=== PATIENT | male | born 1965 | race Caucasian/White ===

== ENCOUNTER 2016-07-10 20:29 | Inpatient (IN) | payer BC ==
[~2016-07-10] VITALS: Ht 182.9 cm; Wt 123.8 kg
[2016-07-10 22:05] LABS: CARBON DIOXIDE (BICARBONATE) 27.3 MEQ/L (20-31)
[2016-07-10 22:06] LABS: HEMATOCRIT 38.7 % (38.0-50.0); MCH 31.1 PG (29.0-34.0); MCHC 34.1 G/DL (30.0-36.0); MCV 91.3 FL (86-99); MEAN PLAT.VOLUME 12.1 uM^3 (9.0-12.4); PLATELET COUNT 66 K/uL (156-360); RBC DIS.WIDTH-CV 12.9 % (11.8-14.6); RED BLOOD COUNT 4.24 M/uL (4.00-5.50); WHITE BLOOD COUNT 6.8 K/uL (4.1-10.2)
[2016-07-10 22:17] LABS: CHLORIDE 94 mEq/L (99-109); POTASSIUM 5.5 mEq/L (3.7-5.4); SODIUM 129 mEq/L (136-147)
[2016-07-10 22:20] LABS: ANION GAP 14 MEQ/L (2-14)
[2016-07-10 22:22] LABS: GFR ESTIMATE (CALCULATED) 38 mL/min/
[2016-07-10 22:23] LABS: UREA NITROGEN (BUN) 40 mg/dL (9-23)
[2016-07-10 22:39] LABS: GLUCOSE 594 mg/dL (70-99)
[2016-07-10 22:55] LABS: SAMPLE HEMOLYSIS CHECK 0; SAMPLE ICTERIC CHECK 0; SAMPLE LIPEMIA CHECK 0
[2016-07-11] MEDS ORDERED: RAMIPRIL5 MG PO (00:19)
[2016-07-11] MEDS ORDERED: METFORMIN HCL500 MG PO (00:20)
[2016-07-11] MEDS ORDERED: CHOLESTEROL MED PO (00:20)
[2016-07-11 03:07] VITALS: BP 183/93
[2016-07-11 03:53] VITALS: BP 185/95
[2016-07-11 06:16] LABS: POINT-OF-CARE METER ID UU14149397
[2016-07-11 08:15] VITALS: BP 166/95
[2016-07-11 09:20] LABS: Estimated Average Glucose 298 mg/dL (70-123)
[2016-07-11 09:30] LABS: ANION GAP 9 MEQ/L (2-14); CHLORIDE 98 MEQ/L (99-109); SAMPLE HEMOLYSIS CHECK 0; SAMPLE ICTERIC CHECK 0; SAMPLE LIPEMIA CHECK 0; SODIUM 131 MEQ/L (136-147)
[2016-07-11 09:35] LABS: GFR ESTIMATE (CALCULATED) 53 mL/min/; GLUCOSE 337 mg/dL (70-99); HDL CHOLESTEROL 21 MG/DL (Desirable>=40); LDL CHOLESTEROL 83 mg/dL (Desirable<100); NON-HDL CHOLESTEROL 106 mg/dL (Desirable<160); TOTAL CHOLESTEROL 127 mg/dL (Desirable<200); TRIGLYCERIDES 116 MG/DL (Normal: <150); UREA NITROGEN (BUN) 35 mg/dL (9-23)
[2016-07-11 09:49] LABS: BASOPHIL COUNT 0.1 K/uL (0-0.1); EOSINOPHIL (%) 2.3 % (0-5); EOSINOPHIL COUNT 0.1 K/uL (0-0.3); HEMATOCRIT 31.2 % (38.0-50.0); IMMATURE GRANULOCYTE (%) 0.4 % (0.0-0.7); INSTRUMENT ABS NEUTROPHIL CT 4.4 K/uL; LYMPHOCYTE COUNT 0.5 K/uL (1.0-2.8); MCH 32.6 PG (29.0-34.0); MCHC 35.3 G/DL (30.0-36.0); MCV 92.6 FL (86-99); MEAN PLAT.VOLUME 11.7 uM^3 (9.0-12.4); MONOCYTE (%) 9.4 % (3-12); MONOCYTE COUNT 0.5 K/uL (0-0.8); NEUTROPHIL (%) 77.6 % (45-76); NEUTROPHIL COUNT 4.4 K/uL (1.8-6.4); PLATELET COUNT 51 K/uL (156-360); RBC DIS.WIDTH-CV 13.4 % (11.8-14.6); RBC DIS.WIDTH-SD 45.7 % (39-53); WHITE BLOOD COUNT 5.7 K/uL (4.1-10.2)
[2016-07-11 09:50] LABS: RED BLOOD COUNT 3.37 M/uL (4.00-5.50)
[2016-07-11 11:53] LABS: POINT-OF-CARE METER ID UU14149397
[2016-07-11 14:48] LABS: POINT-OF-CARE METER ID UU14100415
[2016-07-11 14:49] LABS: POINT-OF-CARE METER ID UU14149397
[2016-07-11 14:50] LABS: POINT-OF-CARE METER ID UU14188577
[2016-07-11 14:54] LABS: POINT-OF-CARE METER ID UU13113800
[2016-07-11 14:54] LABS: POINT-OF-CARE METER ID UU13113800
[2016-07-11 14:54] LABS: POINT-OF-CARE METER ID UU13113800
[2016-07-11 15:57] VITALS: BP 170/74
[2016-07-11 19:11] LABS: POINT-OF-CARE METER ID UU14149397
[2016-07-11 19:49] VITALS: BP 174/94
[2016-07-11 22:10] LABS: METH RESISTANT S AUREUS PCR NEGATIVE (NEGATIVE)
[2016-07-11 22:12] LABS: PROBE CHECK PASS; SPECIMEN PROCESSING CONTROL PASS
[2016-07-11 23:45] VITALS: BP 134/66
[2016-07-12 01:41] LABS: POINT-OF-CARE METER ID UU14149397
[2016-07-12 03:42] VITALS: BP 166/89
[2016-07-12 06:20] LABS: BASOPHIL COUNT 0.1 K/uL (0-0.1); EOSINOPHIL (%) 6.8 % (0-5); EOSINOPHIL COUNT 0.4 K/uL (0-0.3); IMMATURE GRANULOCYTE (%) 0.4 % (0.0-0.7); INSTRUMENT ABS NEUTROPHIL CT 3.6 K/uL; MCHC 33.8 G/DL (30.0-36.0); MCV 94.7 FL (86-99); MONOCYTE COUNT 0.5 K/uL (0-0.8); NEUTROPHIL (%) 65.2 % (45-76); NEUTROPHIL COUNT 3.6 K/uL (1.8-6.4); PLATELET COUNT 63 K/uL (156-360); RBC DIS.WIDTH-CV 13.4 % (11.8-14.6); RBC DIS.WIDTH-SD 46.4 % (39-53); RED BLOOD COUNT 3.59 M/uL (4.00-5.50); WHITE BLOOD COUNT 5.6 K/uL (4.1-10.2)
[2016-07-12 06:49] LABS: ALKALINE PHOSPHATASE 146 IU/L (3-129); ANION GAP 7 MEQ/L (2-14); CHLORIDE 99 MEQ/L (99-109); GFR ESTIMATE (CALCULATED) 46 mL/min/; GLUCOSE 175 mg/dL (70-99); POTASSIUM 3.9 MEQ/L (3.7-5.4); SAMPLE HEMOLYSIS CHECK 0; SAMPLE ICTERIC CHECK 0; SAMPLE LIPEMIA CHECK 0; SODIUM 132 MEQ/L (136-147); TOTAL BILIRUBIN 2.1 MG/DL (0.0-1.0); UREA NITROGEN (BUN) 33 mg/dL (9-23)
[2016-07-12 08:02] VITALS: BP 193/95
[2016-07-12 12:23] VITALS: BP 146/96
[2016-07-12 12:27] LABS: POINT-OF-CARE METER ID UU14149397
[2016-07-12 14:14] LABS: POINT-OF-CARE METER ID UU14149397
[2016-07-12 16:32] VITALS: BP 129/66
[2016-07-12 16:38] VITALS: BP 150/92
[2016-07-12 20:00] VITALS: BP 179/90
[2016-07-13 00:23] VITALS: BP 170/85
[2016-07-13 03:54] VITALS: BP 143/91
[2016-07-13 06:22] LABS: HEMATOCRIT 32.7 % (38.0-50.0); MCHC 33.9 G/DL (30.0-36.0); MCV 94.2 FL (86-99); MEAN PLAT.VOLUME 11.6 uM^3 (9.0-12.4); PLATELET COUNT 51 K/uL (156-360); RBC DIS.WIDTH-CV 13.2 % (11.8-14.6); RBC DIS.WIDTH-SD 45.6 % (39-53); RED BLOOD COUNT 3.47 M/uL (4.00-5.50); WHITE BLOOD COUNT 4.6 K/uL (4.1-10.2)
[2016-07-13 07:30] VITALS: BP 140/98
[2016-07-13] MEDS ORDERED: PRAVASTATIN SOD80 MG PO (08:36)
[2016-07-13] MEDS ORDERED: LEVEMIR100 UNIT/2 SC (08:36)
[2016-07-13] MEDS ORDERED: GABAPENTIN100 MG PO (08:36)
[2016-07-13] MEDS ORDERED: AMLODIPINE BESYL5 MG PO (08:36)
[2016-07-13] MEDS ORDERED: VANCOMYCIN HCL1 GM IV (08:36)
[2016-07-13 11:25] VITALS: BP 162/98
[2016-07-13] MEDS ORDERED: BACTRIM,SEPT1 TABLET PO (11:28)
[2016-07-13 14:07] LABS: ANION GAP 8 MEQ/L (2-14); CHLORIDE 99 MEQ/L (99-109); GFR ESTIMATE (CALCULATED) 32 mL/min/; GLUCOSE 228 mg/dL (70-99); SAMPLE HEMOLYSIS CHECK 0; SAMPLE ICTERIC CHECK 0; SAMPLE LIPEMIA CHECK 0; SODIUM 130 MEQ/L (136-147); UREA NITROGEN (BUN) 38 mg/dL (9-23); VANCOMYCIN, TROUGH 24.8 MCG/ML (10-20)
== END 2016-07-13 14:38 | disposition home health service (06) | DRG 603 ==
LOC: EME 20:29 → 3EAST 07-11 01:27 → EDOF 07-11 01:27 → 3EAST 07-11 02:39
PROVIDERS: Internal Medicine; Internal Medicine Infectious Disease; Pediatrics; Physician Assistant
DX: L03.116 Cellulitis of left lower limb (principal); N17.9 Acute kidney failure, unspecified; I16.0 Hypertensive urgency; E87.1 Hypo-osmolality and hyponatremia; L02.416 Cutaneous abscess of left lower limb; E87.2 Acidosis; F10.20 Alcohol dependence, uncomplicated; B95.62 Methicillin resistant Staphylococcus aureus infection as the cause of diseases classified elsewhere; D69.6 Thrombocytopenia, unspecified; E87.5 Hyperkalemia; E11.42 Type 2 diabetes mellitus with diabetic polyneuropathy; E11.65 Type 2 diabetes mellitus with hyperglycemia; L30.9 Dermatitis, unspecified; E78.5 Hyperlipidemia, unspecified; R25.1 Tremor, unspecified; L71.9 Rosacea, unspecified; E66.9 Obesity, unspecified; Z68.37 Body mass index [BMI] 37.0-37.9, adult; Z91.14 Patient's other noncompliance with medication regimen; Z86.14 Personal history of Methicillin resistant Staphylococcus aureus infection; Z56.0 Unemployment, unspecified; Z79.84 Long term (current) use of oral hypoglycemic drugs; Z83.3 Family history of diabetes mellitus
CPT/HCPCS: 80048; 80053; 80061; 80069; 80202; 82010; 82803; 82948; 83036; 83605; 83735; 85025; 85027; 87040; 87070; 87075; 87077; 87147; 87186; 87205; 87641; 93005; 93971; 94799; 99281; 99285; J0295; J0360; J1644; J1815; J3370; J7030; J7050; J7120

== ENCOUNTER → 2016-09-29 | Outpatient (CLI) | payer BC ==
[~2016-09-29] MED LIST: AMLODIPINE BESYL5 MG PO; BACTRIM,SEPT1 TABLET PO; CHOLESTEROL MED PO; FUROSEMIDE80 MG PO; GABAPENTIN100 MG PO; K-TAB10 MEQ PO; LEVEMIR100 UNIT/2 SC; LOW DOSE ASPIRI81 M1 PO; METFORMIN HCL500 MG PO; PRAVASTATIN SOD80 MG PO; RAMIPRIL5 MG PO; VANCOMYCIN HCL1 GM IV
[2016-09-29 14:51] LABS: TYPE OF FLUID PLEURAL
[2016-09-29 15:48] LABS: BODY FLUID EOSINOPHILS 0 % (0-25); BODY FLUID RBC'S 46000 /MM^3 (0-100); BODY FLUID WBC'S 187 /MM^3 (0-500); MONONUCLEAR WBC'S 99 %; POLYNUCLEAR WBC'S 1 % (0-25)
[2016-09-29 16:09] LABS: BODY FLUID LDH 96 IU/L; BODY FLUID PROTEIN < 3.0 G/DL
== END | disposition home or self-care (01) ==
LOC: RAD 09-26 14:00 → EDSTATUS 09-26 14:00 → RAD 13:41
PROVIDERS: Radiology Diagnostic Radiology
PROC: 0W9B3ZZ Drainage of Left Pleural Cavity, Percutaneous Approach (ICD-10-PCS; principal; 2016-09-29)
DX: J90 Pleural effusion, not elsewhere classified (principal)
CPT/HCPCS: 76942; 82945; 83615 91; 84157; 87070; 87075; 87205; 88108; 88305; 89051

== ENCOUNTER 2016-10-23 16:56 | Inpatient (IN) | payer BC ==
[~2016-10-23] VITALS: Ht 182.9 cm; Wt 127.6 kg
[2016-10-23 17:50] LABS: HEMATOCRIT 35.6 % (38.0-50.0); MCH 31.5 PG (29.0-34.0); MCHC 32.9 G/DL (30.0-36.0); MEAN PLAT.VOLUME 9.6 uM^3 (9.0-12.4); PLATELET COUNT 99 K/uL (156-360); RBC DIS.WIDTH-CV 15.6 % (11.8-14.6); RED BLOOD COUNT 3.71 M/uL (4.00-5.50); WHITE BLOOD COUNT 7.1 K/uL (4.1-10.2)
[2016-10-23 18:04] LABS: CHLORIDE 109 mEq/L (99-109); POTASSIUM 4.8 mEq/L (3.7-5.4); SODIUM 140 mEq/L (136-147)
[2016-10-23 18:06] LABS: GLUCOSE 115 mg/dL (70-99)
[2016-10-23 18:07] LABS: ANION GAP 11 MEQ/L (2-14)
[2016-10-23 18:08] LABS: TOTAL BILIRUBIN 1.5 mg/dL (0.0-1.0)
[2016-10-23 18:10] LABS: ALKALINE PHOSPHATASE 179 IU/L (3-129); GFR ESTIMATE (CALCULATED) 25 mL/min/
[2016-10-23 18:11] LABS: UREA NITROGEN (BUN) 63 mg/dL (9-23)
[2016-10-23] MEDS ORDERED: AMLODIPINE BESYL5 MG PO (20:18)
[2016-10-23 23:39] VITALS: BP 162/88
[2016-10-24 03:02] VITALS: BP 150/81
[2016-10-24 06:53] LABS: HEMATOCRIT 29.3 % (38.0-50.0); MCH 32.8 PG (29.0-34.0); MCHC 33.8 G/DL (30.0-36.0); MEAN PLAT.VOLUME 10.4 uM^3 (9.0-12.4); PLATELET COUNT 70 K/uL (156-360); RBC DIS.WIDTH-CV 15.7 % (11.8-14.6); RBC DIS.WIDTH-SD 56.2 % (39-53); RED BLOOD COUNT 3.02 M/uL (4.00-5.50); WHITE BLOOD COUNT 7.5 K/uL (4.1-10.2)
[2016-10-24 07:10] LABS: ANION GAP 9 MEQ/L (2-14); CHLORIDE 107 MEQ/L (99-109); GFR ESTIMATE (CALCULATED) 28 mL/min/; GLUCOSE 90 mg/dL (70-99); POTASSIUM 4.7 MEQ/L (3.7-5.4); SAMPLE HEMOLYSIS CHECK 0; SAMPLE ICTERIC CHECK 0; SAMPLE LIPEMIA CHECK 0; SODIUM 139 MEQ/L (136-147); UREA NITROGEN (BUN) 58 mg/dL (9-23)
[2016-10-24 07:27] VITALS: BP 171/93
[2016-10-24] MEDS ORDERED: LINEZOLID600 MG PO (07:59)
== END 2016-10-24 09:30 | disposition home or self-care (01) | DRG 603 ==
LOC: EME 16:56 → EDOF 20:37 → ENRESERV 20:39 → CANRESERV 20:39 → ENRESERV 20:56 → CANRESERV 20:56 → ENRESERV 21:34 → 3EAST 23:06
PROVIDERS: Hospitalist; Physician Assistant
DX: L03.116 Cellulitis of left lower limb (principal); N17.9 Acute kidney failure, unspecified; I13.0 Hypertensive heart and chronic kidney disease with heart failure and stage 1 through stage 4 chronic kidney disease, or unspecified chronic kidney disease; N18.3 Chronic kidney disease, stage 3 (moderate); I50.30 Unspecified diastolic (congestive) heart failure; I42.9 Cardiomyopathy, unspecified; E11.22 Type 2 diabetes mellitus with diabetic chronic kidney disease; D69.6 Thrombocytopenia, unspecified; E78.5 Hyperlipidemia, unspecified; D63.1 Anemia in chronic kidney disease; I87.8 Other specified disorders of veins; E66.9 Obesity, unspecified; Z79.82 Long term (current) use of aspirin; Z79.4 Long term (current) use of insulin; Z86.14 Personal history of Methicillin resistant Staphylococcus aureus infection; Z68.38 Body mass index [BMI] 38.0-38.9, adult
CPT/HCPCS: 71020; 73590; 80048; 80053; 83605; 83880; 85027; 87040; 87070; 87075; 87077; 87147; 87186; 87205; 93971; 99281; 99285; J1644; J1815; J2020; J7030